=== PATIENT | female | born 1995 | race Caucasian/White ===

== ENCOUNTER 2024-04-17 14:32 | Emergency (ER) | payer SELFPAY ==
--- OUTSIDE RECORDS SUMMARY | 2024-04-17 14:37 | XMS REPORT | Continuity of Care Document ---
Author Name Unknown Address [address] [facility] [address] [place] [address] [facility] Address [address] [facility] [address] [place] [address] Care Team Providers Care Hogshead Weigher Name Role Phone ALEXA PHILIPPE Attending Clinician CAMILO Sethi Attending Clinician Unavailable Claude Ochoa Attending Clinician TERRANCE Jurado Attending Clinician Unavailable Physician, No Primary or Family Admitting Clinic [place] Unavailable Payers Payer Name Policy Type Policy Number Effective Date Expirati on Date Source [facility] [id number] 00:00:00 TP68 [employer] [id number] 2024 00:00:00 Allergies, Adverse Reactions, Alerts Allergy Name Allergy Type Status Severity Reaction(s) Onset Date Inactive Date Treating Clinician Comments Source Penicill ins DA Active U HIVES 01-09 00:00: 00 [facility] PENICILL INS Drug Class Active Hives 2017-06 00:00: 00 [facility] Encounters Start Date/Time End Date/Time Encounter Type Admission Type Attending Clinicians Care Facility Care Department Encounter ID Source 2021-04-13 21:57:23 Emergency [facility] [id number] [facility] 2024-04-09 00:00:00 2024-04-09 00:00:00 Outpatient ALEXA PHILIPPE [facility] [id number] [facility] 2023-02-28 00:00:00 2023-02-28 00:00:00 Outpatient CAMILO SALCEDO [facility] [id number] [facility] 2023-01-09 11:39:00 2023-01-09 12:45:00 Emergency EM Claude Ochoa [facility] [id number] [facility] 2022-12-12 15:47:00 2022-12-12 19:12:00 Emergency E TERRANCE [facility] [address] [facility] 2019-09-07 08:00:00 2019-09-07 08:00:00 Outpatient P [facility] [id number] [facility] Results Test Description Test Time Test Comments Results Resul t Comments Source - XR CHEST 1 V 2023-01-09 12:50:00 [facility] 1995 Sex: F FAX: Claude Ochoa MD [place]: B St: REG Name: YING BENSON [facility] : 1995 Age/S: 27/F Nadiya Mills [facility] Unit #: [id number] Loc: VHAZEL Ruffin [address] Phys: Claude Ochoa MD Acct: [id number] Dis Date: Status: REG ER PHONE #: [phone] Exam Date: 01/09/2023 1206 FAX #: [phone] Reason: Seizure EXAMS: CPT CODE: [id number] XR CHEST 1 V [id number] EXAM: - XR CHEST 1 V DATE: 01/09/2023 11:56 AM. INDICATION: Seizure . COMPARISON: None available. TECHNIQUE: Frontal chest. FINDINGS: Lines, Tubes and Hardware: None. Lungs and Pleura: No focal consolidation, pleural effusion, or pneumothorax is identified. Heart and Mediastinum: The heart size is normal. The mediastinal contours are unremarkable. Pulmonary vascularity is unremarkable. Bones: No acute skeletal abnormality is identified. Upper abdomen: Within normal limits IMPRESSION: No acute abnormality. at 1250 Reported and signed by: Castillo Calderon M.D. CC: Claude Ochoa MD Technologist: SANDIE YANES Trnscrd Date/Time/By: 01/09/2023 (8553) : By: [email or web address] Orig Print D/T: S: 01/09/2023 (6146) PAGE 1 Signed Report - CT HEAD/BRAIN W/O CONT 2023-01-09 12:46:00 [facility]Name: KELLEY YING Swathi : 1995 Sex: F Name: YING BENSON Swathi [facility] : 1995 Age/S: 27 / F [address] Unit #: [id number] Loc: HAZEL cShmidt [address] Phys: Claude Ochoa MD Acct: [id number] Dis Date: Status: REG ER PHONE #: [phone] Exam Date: 01/09/2023 1220 FAX #: [phone] Reason: Seizure EXAMS: CPT CODE: [id number] CT HEAD/BRAIN W/O CONT [id number] EXAM: - CT HEAD/BRAIN W/O CONT DATE: 01/09/2023 11:56 AM. INDICATION: Seizure . COMPARISON: None available. TECHNIQUE: Noncontrast images of the brain are obtained from the skull base to the vertex. Axial, sagittal, and coronal images are interpreted. AEC, mA/kV adjustment by patient size, and/or iterative reconstruction technique were used, per departmental dose-optimization program. IV contrast: None. DLP: 927.95 mGy-cm. FINDINGS: BRAIN PARENCHYMA/VENTRICLES There is no evidence of cerebral edema, mass, mass effect, hemorrhage, or recent cortical infarct. The campos-white distinction appears maintained. The brain volume is age-appropriate. The ventricles are normal in size and configuration. The basal cisterns appear patent. The cerebellopontine angles appear unremarkable. ORBITS, VISIBLE PARANASAL SINUSES AND MASTOIDS The visible paranasal sinuses are clear. The mastoid air cells are clear. No acute orbital abnormality is seen. SKULL No skull fracture or focal lesion is identified. IMPRESSION: No acute intracranial abnormality. PAGE 1 Signed Report (CONTINUED) Name: YING BENSON [facility] : 1995 Age/S: 27 / F [address] Unit #: [id number] Loc: [place] [address] Phys: Claude Ochoa MD Acct: [id number] Dis Date: Status: REG ER PHONE #: [phone] Exam Date: 01/09/2023 1220 FAX #: [phone] Reason: Seizure EXAMS: CPT CODE: [id number] CT HEAD/BRAIN W/O CONT [id number] (Continued) at 1246 Reported and signed by: Castillo Calderon M.D. CC: Claude Ochoa MD Technologist:Jose Grant RT(R),(MR),(CT) CTDI: DLP: Trnscb Date/Time: 01/09/2023 (1246) [email or web address] Orig Print D/T: S: 01/09/2023 (1250) PAGE 2 Signed Report Notes Date/Time Note Provider Source 2023-01-09 13:13:00 [facility] EMERGENCY PROVIDER REPORT REPORT#:[id number] REPORT STATUS: Signed DATE:01/09/23 TIME: 1313 PATIENT: YING BENSON UNIT #: [id number] ROOM/BED: AGE: 27 SEX: F PCP PHYS: No Primary or Family Physician SERVICE AUTHOR: Claude Ochoa MD * ALL edits or amendments must be made on the electronic/computer document * HPI-Seizure General Initial Greet Date/Time 01/09/23 1140 Presentation Chief Complaint SEIZURE Free Text HPI Notes Free Text HPI Notes 27-year-old female presented to the emergency room with recurrent seizure. However patient left the emergency room prior to medical screening exam Past Medical History - Adult Stated Complaint SEIZURE Allergies Coded Allergies: Penicillins (HIVES 01/09/23) Smoking status for patients 13 years old or older: Current every day smoker Physical Exam Vital Signs Vital Signs First Documented: Result Date Time Pulse Ox 100 01/09 1146 B/P 127/87 01/09 1146 B/P Mean 100.5 01/09 1146 Temp 36.8 01/09 1146 Pulse 107 01/09 1146 Resp 18 01/09 1146 Last Documented: Result Date Time Pulse Ox 100 01/09 1146 B/P 127/87 01/09 1146 B/P Mean 100.5 01/09 1146 Temp 36.8 01/09 1146 Pulse 107 01/09 1146 Resp 18 01/09 1146 Review of Vital Signs Reviewed Interpretation Diagnostics Lab Results Interpretation Results Recent Impressions: RADIOLOGY - XR CHEST 1 V 01/09 1200 Report Impression - Status: SIGNED Entered: 01/09/2023 1253 IMPRESSION: No acute abnormality. Impression By: t.JOAO Calderon M.D. CAT SCAN - CT HEAD/BRAIN W/O CONT 01/09 1215 Report Impression - Status: SIGNED Entered: 01/09/2023 1250 IMPRESSION: No acute intracranial abnormality. Impression By: Loi Calderon M.D. Re-Evaluation MDM Free Text MDM Notes Free Text MDM Notes 27-year-old female with a recurrent seizure Chest x-ray and CT unremarkable Patient left the emergency room prior to medical screening exam ED Course Medication(s) Ordered Medication(s) Ordered: Central Nervous System Agents Sig/Levar Start time Last Medication Dose Route Stop Time Status Admin Levetiracetam 100 ML X1ED STA 01/09 1156 DC IV 01/09 1255 Electrolytic, Caloric, And Carla Sig/Levar Start time Last Medication Dose Route Stop Time Status Admin Sodium Chloride 1,000 ML X1ED STA 01/09 1155 DC IV 01/09 1254 Differential Diagnosis )( Differential Diagnosis Anticonvulsant withdrawal, Closed head injury, CVA/TIA , Drug ingestion, Drug overdose, Drug reaction, Eclampsia, Encephalitis, Head trauma, Hyperventilation, Hypocalcemia, Hypoglycemia, Hyponatremia, Hypoxemia, Intracranial bleed, Intracranial mass/lesion, Meningitis, Migraine headache atypic, Migraine headache variant, Post-concussive syndrome, Pseudoseizure, Seizure disorder, Seizure, absence, Seizure, alcohol withdraw, Seizure, grand mal, Seizure, new onset, Seizure, petit mal, Seizure, psychogenic, Seizure, psychomotor, Seizure, tonic-clonic, Skull fracture, Syncope, Tic disorder, Tongue laceration Patient Discharge Departure Vital Signs/Condition Vital Signs First Documented: Result Date Time Pulse Ox 100 01/09 1146 B/P 127/87 01/09 1146 B/P Mean 100.5 01/09 1146 Temp 36.8 01/09 1146 Pulse 107 01/09 1146 Resp 18 01/09 1146 Last Documented: Result Date Time Pulse Ox 100 01/09 1146 B/P 127/87 01/09 1146 B/P Mean 100.5 01/09 1146 Temp 36.8 01/09 1146 Pulse 107 01/09 1146 Resp 18 01/09 1146 All vital signs available at the time of this entry have been reviewed. Clinical Impression Clinical Impression Primary Impression: Recurrent seizures Disposition Decision Other )( Time 1315 )( Date 01/09/23 Left Prior to MSE Yes at 1406 RPT #:[id number] [facility]
--- NOTE | 2024-04-17 16:22 | ER ---
Nurse's Notes [facility] Name: Francesca aLwrence Age: 29 yrs Sex: Female : 1995 Arrival Date: 04/17/2024 Time: 14:32 Bed DX3 Private MD: Diagnosis: Periapical abscess without sinus;Dental root caries;Cellulitis of face Presentation: 04/17 14:52 Chief complaint: Patient states: left toothache and left cheek swelling. Pt states aa5 "it's now making me nauseated and I've vomited". Coronavirus screen: At this time, the client does not indicate any symptoms associated with coronavirus-19. Ebola Screen: Patient denies travel to an Ebola-affected area in the 21 days before illness onset. Initial Sepsis Screen: Does the patient meet any 2 criteria? HR > 90 bpm. Does the patient have a suspected source of infection? No. Patient's initial sepsis screen is negative. Risk Assessment: Do you want to hurt yourself or someone else? Patient reports no desire to harm self or others. Onset of symptoms was March 2024. 14:52 Acuity: CHINEDU 3 aa5 14:52 Method Of Arrival: Ambulatory aa5 Triage Assessment: 14:52 General: Appears uncomfortable, Behavior is calm, cooperative. Pain: Complains of pain aa5 in left cheek. Neuro: Level of Consciousness is awake, alert, obeys commands, Oriented to person, place, time, situation. Respiratory: Airway is patent Respiratory effort is even, unlabored, Respiratory pattern is regular, symmetrical. Derm: Skin is pink, warm \\T\\ dry. Historical: - Allergies: 14:53 PENICILLINS; aa5 - PMHx: 14:53 Seizure; aa5 - PSHx: 14:53 oral sx; aa5 - Immunization history:: Adult Immunizations unknown. - Infectious Disease History:: Denies. - Social history:: Smoking status: Patient reports the use of cigarette tobacco products. Assessment: 16:28 Reassessment: Patient is alert, oriented x 3, equal unlabored respirations, skin aa5 warm/dry/pink. Vital Signs: 14:52 BP 122 / 81; Pulse 98; Resp 18 S; Temp 98(O); Pulse Ox 98% on R/A; Weight 68.04 kg (R); aa5 Height 5 ft. 4 in. (R); 14:52 Body Mass Index 25.75 (68.04 kg, 162.56 cm) aa5 ED Course: 14:35 Patient arrived in ED. mg5 14:48 Navya Miller MD is Attending Physician. gb1 14:52 Arm band placed on. aa5 14:53 Triage completed. aa5 16:21 Magdy Cohen DDS is Referral Physician. gb1 16:28 No provider procedures requiring assistance completed. Patient did not have IV access aa5 during this emergency room visit. Administered Medications: 16:28 Drug: Ondansetron PO 4 mg PO once Route: PO; aa5 16:28 Follow up: Response: Medication administered at discharge. aa5 16:28 Drug: HYDROcodone-acetaminophen PO 5 mg-325 mg 1 tabs PO once Route: PO; aa5 16:28 Follow up: Response: Medication administered at discharge. aa5 Outcome: 16:21 Discharge ordered by MD. gb1 16:28 Discharged to home ambulatory, aa5 16:28 Condition: stable 16:28 Discharge instructions given to patient, Instructed on discharge instructions, follow up and referral plans. medication usage, Demonstrated understanding of instructions, follow-up care, medications, Prescriptions given X 3, 16:29 Patient left the ED. aa5 Signatures: Shelley nAdrade RN RN aa5 Blaire Morelos mg5 Navya Miller MD MD gb1 Corrections: (The following items were deleted from the chart) 14:54 14:53 PMHx: None; aa5 aa5
--- NOTE | 2024-04-17 16:22 | EDPHYS ---
Physician Documentation [facility] Name: Francesca Lawrence Age: 29 yrs Sex: Female : 1995 Arrival Date: 04/17/2024 Time: 14:32 Bed DX3 Private MD: ED Physician Navya Miller HPI: 04/17 19:54 This 29 yrs old Female presents to ER via Ambulatory with complaints of gb1 Nausea/Vomiting, Toothache. 19:54 29-year-old female with left tooth pain and headache. She has a history of seizures and gb1 states that she was nauseated and vomited after her left face started to swell and become painful. It hurts to eat or have hot or cold foods in her mouth.. Historical: - Allergies: 14:53 PENICILLINS; aa5 - PMHx: 14:53 Seizure; aa5 - PSHx: 14:53 oral sx; aa5 - Immunization history:: Adult Immunizations unknown. - Infectious Disease History:: Denies. - Social history:: Smoking status: Patient reports the use of cigarette tobacco products. Exam: 19:54 Constitutional: This is a well developed, well nourished patient who is awake, alert, gb1 and in no acute distress. Head/Face: Left facial swelling, upper left molar severe dental caries with rotting dentition. Very foul odors in the patient's mouth. Eyes: Pupils equal round and reactive to light, extra-ocular motions intact. Lids and lashes normal. Conjunctiva and sclera are non-icteric and not injected. Cornea within normal limits. Periorbital areas with no swelling, redness, or edema. ENT: Nares patent. No nasal discharge, no septal abnormalities noted. Tympanic membranes are normal and external auditory canals are clear. Oropharynx with no redness, swelling, or masses, exudates, or evidence of obstruction, uvula midline. Mucous membranes moist. Chest/axilla: Normal chest wall appearance and motion. Nontender with no deformity. No lesions are appreciated. Cardiovascular: Regular rate and rhythm with a normal S1 and S2. No gallops, murmurs, or rubs. Normal PMI, no JVD. No pulse deficits. Respiratory: Lungs have equal breath sounds bilaterally, clear to auscultation and percussion. No rales, rhonchi or wheezes noted. No increased work of breathing, no retractions or nasal flaring. Abdomen/GI: Soft, non-tender, with normal bowel sounds. No distension or tympany. No guarding or rebound. No evidence of tenderness throughout. Vital Signs: 14:52 BP 122 / 81; Pulse 98; Resp 18 S; Temp 98(O); Pulse Ox 98% on R/A; Weight 68.04 kg (R); aa5 Height 5 ft. 4 in. (R); 14:52 Body Mass Index 25.75 (68.04 kg, 162.56 cm) aa5 MDM: 15:31 Medical Screening Exam initiated gb1 19:54 Differential diagnosis: Dental caries, periapical abscess with facial cellulitis, gb1 dental abscess, acute gingivitis doubt ANUG. There is no brawny edema at this time no concern for subungual edema. I do think that the patient has an active dental infection I have prescribed antibiotics and pain medicine and I have referred her to oral maxillofacial surgery for likely extraction. Data reviewed: vital signs, nurses notes. Administered Medications: 16:28 Drug: Ondansetron PO 4 mg PO once Route: PO; aa5 16:28 Follow up: Response: Medication administered at discharge. aa5 16:28 Drug: HYDROcodone-acetaminophen PO 5 mg-325 mg 1 tabs PO once Route: PO; aa5 16:28 Follow up: Response: Medication administered at discharge. aa5 Disposition Summary: 04/17/24 16:21 Discharge Ordered Notes: Location: Home gb1 Problem: an acute exacerbation gb1 Symptoms: have worsened gb1 Condition: Stable gb1 Diagnosis - Periapical abscess without sinus gb1 - Dental root caries gb1 - Cellulitis of face gb1 Followup: gb1 - With: Magdy Cohen DDS - When: 1 - 2 days - Reason: Further diagnostic work-up Discharge Instructions: - Discharge Summary Sheet gb1 - Dental Abscess gb1 Forms: - Medication Reconciliation Form gb1 - Antibiotic Education gb1 - Prescription Opioid Use gb1 - Patient Portal Instructions gb1 - Leadership Thank You Letter gb1 Prescriptions: - tramadol 50 mg Oral tablet - take 0.5 tablet ORAL route every 4 to 6 hours as needed for pain; 6 tablet; gb1 Refills: 0, Product Selection Permitted - Clindamycin HCl 150 mg Oral Capsule - take 1 capsule ORAL route every 6 hours for 10 days; 40 capsule; Refills: 0, gb1 Product Selection Permitted - Ibuprofen 800 mg Oral Tablet - take 1 tablet ORAL route every 8 hours As needed take with food; 30 tablet; gb1 Refills: 0, Product Selection Permitted Signatures: Shelley Andrade, RN RN aa5 Navya Miller MD MD gb1 Corrections: (The following items were deleted from the chart) 14:54 14:53 PMHx: None; jade hansen
[2024-04-17] MEDS ORDERED: ONDANSETRON 4 MG (ODT) TAB ONE (16:25)
[2024-04-17] MEDS ORDERED: HYDROCODONE/APAP 5/325 MG TAB ONE (16:25)
[2024-04-17 17:06] VITALS: BP 122/81; TEMP 98; O2SAT 98
== END 2024-04-17 16:29 | disposition home or self-care (01) ==
LOC: ER 14:32
DX: K04.7 Periapical abscess without sinus (principal); K02.7 Dental root caries; L03.211 Cellulitis of face
CPT/HCPCS: 99283; Q0162

== ENCOUNTER 2024-04-18 09:06 | Inpatient (IN) | payer SELFPAY ==
--- OUTSIDE RECORDS SUMMARY | 2024-04-18 09:08 | XMS REPORT | Continuity of Care Document ---
Author Name Unknown Address [address] [facility] [address] [place] [address] [facility] Address [address] [facility] [address] [place] [address] Care Team Providers Care Electric Meter Tester Helper Name Role Phone ALEXA PHILIPPE Attending Clinician CAMILO Sethi Attending Clinician Unavailable Claude Ochoa Attending Clinician TERRANCE Jurado Attending Clinician Unavailable Physician, No Primary or Family Admitting Clinic [place] Unavailable Payers Payer Name Policy Type Policy Number Effective Date Expirati on Date Source [facility] [id number] 00:00:00 TP68 [employer] [id number] 2024 00:00:00 Allergies, Adverse Reactions, Alerts Allergy Name Allergy Type Status Severity Reaction(s) Onset Date Inactive Date Treating Clinician Comments Source Penicill ins DA Active U HIVES 01-09 00:00: 00 [facility] PENICILL INS Drug Class Active Hives 2017-06 00:00: 00 [facility] Encounters Start Date/Time End Date/Time Encounter Type Admission Type Attending Clinicians Care Facility Care Department Encounter ID Source 2021-04-13 21:57:23 Emergency [facility] [id number] [facility] 2024-04-09 00:00:00 2024-04-09 00:00:00 Outpatient ALEXA PHILIPPE [facility] [id number] [facility] 2023-02-28 00:00:00 2023-02-28 00:00:00 Outpatient CAMILO SALCEDO [facility] [id number] [facility] 2023-01-09 11:39:00 2023-01-09 12:45:00 Emergency EM Claude Ochoa [facility] [id number] [facility] 2022-12-12 15:47:00 2022-12-12 19:12:00 Emergency E TERRANCE [facility] [id number] [facility] 2019-09-07 08:00:00 2019-09-07 08:00:00 Outpatient P [facility] [id number] [facility] Results Test Description Test Time Test Comments Results Resul t Comments Source - XR CHEST 1 V 2023-01-09 12:50:00 [facility] 1995 Sex: F FAX: Claude Ochoa MD [place]: B St: REG Name: YING BENSON [facility] : 1995 Age/S: 27/F Nadiya Mills [facility] Unit #: [id number] Loc: VHAZEL Ruff[place] [address] Phys: Claude Ochoa MD Acct: [id number] Dis Date: Status: REG ER PHONE #: [phone] Exam Date: 01/09/2023 1206 FAX #: [phone] Reason: Seizure EXAMS: CPT CODE: [id number] XR CHEST 1 V 59415 EXAM: - XR CHEST 1 V DATE: [...] MD Technologist: SANDIE YANES Trnscrd Date/Time/By: 01/09/2023 (9411) : By: [email or web address] Orig Print D/T: S: 01/09/2023 (9995) PAGE 1 Signed Report - CT HEAD/BRAIN W/O CONT 2023-01-09 12:46:00 [facility]Name: KELLEY YING Swathi : 1995 Sex: F Name: YING BENSON Swathi [facility] : 1995 Age/S: 27 / F [address] Unit #: [id number] Loc: [place] [address] Phys: Claude Ochoa MD Acct: [id number] Dis Date: Status: REG ER PHONE #: [phone] Exam Date: 01/09/2023 1220 FAX #: [phone] Reason: Seizure EXAMS: CPT CODE: [id number] CT HEAD/BRAIN W/O CONT [id number] EXAM: - CT HEAD/BRAIN W/O CONT DATE: [...] 1 Signed Report (CONTINUED) Name: YING BENSON [facility] : 1995 Age/S: 27 / F [address] Unit #: [id number] Loc: HA[place]EL [place] [address] Phys: Claude Ochoa MD Acct: [id number] Dis Date: Status: REG ER PHONE #: [phone] Exam Date: 01/09/2023 1220 FAX #: [phone] Reason: Seizure EXAMS: CPT CODE: [id number] CT HEAD/BRAIN W/O CONT 65732 (Continued) at 1246 Reported and signed by: Castillo Calderon M.D. CC: Claude Ochoa MD Technologist:Jose Grant RT(R),(MR),(CT) CTDI: DLP: Trnscb Date/Time: 01/09/2023 (1246) [email or web address] Orig Print D/T: S: 01/09/2023 (1250) PAGE 2 Signed Report Notes Date/Time Note Provider Source 2023-01-09 13:13:00 [facility] EMERGENCY PROVIDER REPORT REPORT#:[id number] REPORT STATUS: Signed DATE:01/09/23 TIME: 1313 PATIENT: YING BENSON UNIT #: [id number] ROOM/BED: AGE: 27 SEX: F PCP PHYS: [...] IMPRESSION: No acute intracranial abnormality. Impression By: Lio Calderon M.D. Re-Evaluation MDM Free Text MDM [...] 01/09/23 Left Prior to MSE Yes at 6346 RPT #:[id number] [facility]
[2024-04-18] MEDS ORDERED: LEVETIRACETAM 500 MG/5 ML VIAL IV ONE (09:45)
[2024-04-18] MEDS ORDERED: PROMETHAZINE INJ 25 MG/ML AMP ONE (09:45)
[2024-04-18] MEDS ORDERED: NA CHLORIDE 0.9% 500 ML ONE (09:46)
[2024-04-18] MEDS ORDERED: CLINDAMYCIN 600MG/D5W 50 ML IV ONE (09:46)
[2024-04-18] MEDS ORDERED: MORPHINE 4 MG/ML SYR ONE (09:46)
[2024-04-18] MEDS ORDERED: NA CHLORIDE 0.9% 1,000 ML ONE (09:46)
[2024-04-18] MEDS ORDERED: NA CHLORIDE 0.9% 100 ML ONE (09:47)
[2024-04-18 10:09] LABS: Absolute Basophils 0.1 K/uL (0-0.5); Absolute Eosinophils 0.3 K/uL (0-0.5); Absolute Lymphocytes (CBC) 2.4 K/uL (0.7-4.9); Absolute Monocytes 1.3 K/uL (0.1-1.3); Absolute Neutrophil 11.2 K/uL (1.8-8.0); Basophils % 0.5 % (0-1.3); Eosinophils % 2.2 % (0-4.4); Hematocrit 45.3 % (36.0-45.0); Hemoglobin 15.1 g/dL (12.0-15.0); Lymphocytes % 15.7 % (15.3-44.8); MCH 32.5 pg (27.0-35.0); MCHC 33.3 g/dL (32.0-36.0); MCV 97.7 fL (80-100); MPV 9.2 fL (7.6-11.3); Monocytes % 8.5 % (3.3-12.3); Neutrophils % 73.1 % (41.7-73.7); Platelets 294 thou/uL (152-406); RBC Red Blood Cell Count 4.64 M/uL (3.86-4.86); Red Cell Distribution Width 12.7 % (12.1-15.2)
[2024-04-18 10:28] LABS: Albumin 3.9 g/dL (3.4-5.0); Albumin/Globulin Ratio 0.9 (1.1-1.8); Anion Gap 10.5 mEq/L (5.0-15.0); Bilirubin Total 0.6 mg/dL (0.2-1.0); Globulin 4.4 g/dL (2.3-3.5); Potassium 3.5 mEq/L (3.5-5.1); Protein, Total 8.3 g/dL (6.4-8.2)
--- NOTE | 2024-04-18 10:59 | RAD REPORT ---
EXAMINATION: CT MAXILLOFACIAL WITH CONTRAST CLINICAL INDICATION: FACIAL PAIN TECHNIQUE: Axial images were obtained through the facial bones and orbits without intravenous contras t. Sagittal and coronal reconstructions were created from the data. One or more of the following dose reduction techniques were used: Automated exposure control, adjustment of the mA and/or kV accor ding to patient size, and/or iterative reconstruction. Unless otherwise specified, incidental findings do not require dedicated imaging follow-up. IV contrast was administered. COMPARISON: No prior exam. FINDINGS: SOFT TISSUE: Moderate soft tissue swelling is seen left aspect of the face. Subperiosteal odontogenic abscess is noted adjacent to the posterior left maxillary buccal cortex. This measures 20 x 4 mm. Mild reactive lymphadenopathy seen left submandibular and left jugular chain stations. BONES: Eroded left posterior maxillary molar noted with significant periapical abscess. This is predo minantly involving the first left maxillary molar. ORBITS: The globes are intact. No intraorbital hemorrhage or mass. SINUSES: Moderate sinus opacification left maxillary antrum. IMPRESSION: Moderate soft tissue swelling is seen left aspect of the space. Subperiosteal odontogenic abscess is seen along the posterior left buccal cortex adjacent to the posterior left maxilla. This appears to be caused by significantly eroded left first maxillary molar with large periapical abscess associated .
--- NOTE | 2024-04-18 11:26 | ER ---
Nurse's Notes [facility] Name: Francesca Lawrence Age: 29 yrs Sex: Female : 1995 Arrival Date: 04/18/2024 Time: 09:06 Bed 4 Private MD: Diagnosis: Periapical abscess without sinus;Dehydration Presentation: 04/18 09:16 Chief complaint: Patient states: left sided facial swelling since 04/15, was prescribed iw clindamycin for a toothache and cellulitis but has not started it. Coronavirus screen: At this time, the client does not indicate any symptoms associated with coronavirus-19. Initial Sepsis Screen: Does the patient meet any 2 criteria? HR > 90 bpm. Does the patient have a suspected source of infection? No. Patient's initial sepsis screen is negative. Risk Assessment: Do you want to hurt yourself or someone else? Patient reports no desire to harm self or others. 09:16 Method Of Arrival: Ambulatory iw 09:16 Ebola Screen: No symptoms or risks identified at this time. Onset of symptoms was iw April 15, 2024. 09:16 Acuity: CHINEDU 3 iw SUBSTANCE ABUSE PREVENTION COORDINATOR: 09:17 LMP N/A - Irregular menses, Not iw Historical: - Allergies: 09:17 PENICILLINS; iw - PMHx: 09:17 Seizure; iw - PSHx: 09:17 oral SX; iw - Immunization history:: Adult Immunizations not up to date. - Infectious Disease History:: Denies. - Social history:: Smoking status: Patient reports the use of cigarette tobacco products. Screenin:45 [facility] ED Fall Risk Assessment (Adult) History of falling in the last 3 months, hb including since admission No falls in past 3 months (0 pts) Confusion or Disorientation No (0 pts) Intoxicated or Sedated No (0 pts) Impaired Gait No (0 pts) Mobility Assist Device Used No (0 pt) Altered Elimination No (0 pt) Score/Fall Risk Level 0 - 2 = Low Risk Oriented to surroundings, Maintained a safe environment, Educated pt \T\ family on fall prevention, incl call for assistance when getting out of bed. Abuse screen: Denies threats or abuse. Denies injuries from another. Nutritional screening: No deficits noted. Tuberculosis screening: No symptoms or risk factors identified. Assessment: 09:30 General: Appears in no apparent distress. Behavior is calm, cooperative. Pain: Pain hb currently is 10 out of 10 on a pain scale. Neuro: Level of Consciousness is awake, alert, obeys commands, Oriented to person, place, time, situation. Cardiovascular: Patient's skin is warm and dry. Respiratory: Respiratory effort is even, Respiratory pattern is regular, symmetrical. GI: No signs and/or symptoms were reported involving the gastrointestinal system. : No signs and/or symptoms were reported regarding the genitourinary system. EENT: left sided facial swelling . Derm: Skin is pink, warm \T\ dry. Musculoskeletal: No signs and/or symptoms reported regarding the musculoskeletal system. 11:00 Reassessment: Patient appears in no apparent distress at this time. Patient and/or hb family updated on plan of care and expected duration. Pain level reassessed. Patient is alert, oriented x 3, equal unlabored respirations, skin warm/dry/pink. 12:30 Reassessment: Patient appears in no apparent distress at this time. Patient and/or hb family updated on plan of care and expected duration. Pain level reassessed. Patient is alert, oriented x 3, equal unlabored respirations, skin warm/dry/pink. Vital Signs: 09:16 BP 123 / 97; Pulse 103; Resp 18; Temp 99.1; Pulse Ox 97% on R/A; Weight 67.13 kg; iw Height 5 ft. 4 in. ; Pain 10/10; 10:45 BP 126 / 86; Pulse 100; Resp 15; Pulse Ox 99% on R/A; hb 12:30 BP 124 / 80; Pulse 92; Resp 15; Pulse Ox 99% on R/A; hb 13:20 BP 119 / 91; Pulse 105; Resp 16; Pulse Ox 100% on R/A; mb9 09:16 Body Mass Index 25.40 (67.13 kg, 162.56 cm) iw 09:16 Pain Scale: Adult iw ED Course: 09:07 Patient arrived in ED. ra3 09:12 Jennifer Mars FNP-C is PHCP. snw 09:12 Damien Ray MD is Attending Physician. snw 09:18 Triage completed. iw 09:45 No provider procedures requiring assistance completed. hb 09:45 Patient has correct armband on for positive identification. Provided Education on: use hb of call light . 09:45 Arm band placed on right wrist. hb 09:50 No apparent distress. Awaiting lab results. bm7 09:50 Initial lab(s) drawn, by me, sent to lab. First set of blood cultures drawn by me. bm7 Inserted saline lock: 20 gauge 24 gauge antecubital area, using aseptic technique. Blood collected. Missed attempt(s): 20 gauge in left antecubital area. Bleeding controlled, band aid applied, catheter tip intact. Patient maintains SpO2 saturation greater than 95% on room air. 10:03 Test, Serum Sent. hb 10:18 Maddy Fung, MANUEL is Primary Nurse. hb 10:45 CT Maxillofacial W/cont In Process Unspecified. EDMS 11:25 Damien Ray MD is Hospitalizing Provider. snw 13:18 Patient admitted, IV remains in place. hb Administered Medications: 10:03 Drug: Promethazine IVP 6.25 mg IVP once Route: IVP; Site: right antecubital; hb 12:23 Follow up: Response: No adverse reaction; Nausea is decreased; RASS: Drowsy (-1) ll1 10:03 Drug: morphine IVP or IV 4 mg IVP once over 4 mins Route: IVP; Infused Over: 4 mins; hb Site: right antecubital; 12:23 Follow up: Response: No adverse reaction; Pain is decreased; RASS: Drowsy (-1) ll1 10:03 Drug: NS 0.9% IV (20 ml/kg) 20 ml/kg IV at 1 bolus once; to be given as a bolus over 90 hb minutes Route: IV; Rate: 1 bolus; Site: right antecubital; 12:22 Follow up: Response: No adverse reaction; IV Status: Completed infusion; IV Intake: ll1 1343ml 10:03 Drug: Keppra IV 1000 mg IV at calculated rate once Route: IV; Rate: calculated rate; hb Site: right antecubital; 12:22 Follow up: Response: No adverse reaction; IV Status: Completed infusion; IV Intake: ll1 100ml 10:19 Drug: Clindamycin IVPB 600 mg IVPB once over 30 mins; (mix in 50 mL) Route: IVPB; hb Infused Over: 30 mins; Site: right antecubital; 12:22 Follow up: Response: No adverse reaction; IV Status: Completed infusion; IV Intake: [id number] 12:22 Drug: metroNIDAZOLE IVPB 500 mg 100 ml IVPB at 200 ml/hr once over 30 mins Volume: 100 ll1 ml; Route: IVPB; Rate: 200 ml/hr; Infused Over: 30 mins; Site: right antecubital; 13:20 Follow up: Response: No adverse reaction; IV Status: Completed infusion [email or web address] Medication: 10:45 VIS not applicable for this client. hb Intake: 12:22 IV: 50ml; Total: 50ml. ll1 12:22 IV: 100ml; Total: 150ml. ll1 12:22 IV: 1343ml; Total: 1493ml. ll1 Outcome: 11:25 Decision to Hospitalize by Provider. snw 13:20 Admitted to Med/surg accompanied by tech, via stretcherjony 13:20 Condition: stable 13:20 Instructed on the need for admit, 13:40 Patient left the ED. [email or web address] Signatures: Dispatcher [employer] EDMS Jennifer Mars, YELLOW PAGES SPACE SALESPERSON-C YELLOW PAGES SPACE SALESPERSON-Csnw Jina Peralta, MANUEL JACKSON Maddy Fung RN MANUEL Ashleigh Newman RN RN ll1 Brenda Kruse RN RN [email or web address] Diana Talbert, RN RN mb9 Jeannine Mckeon ra3 Corrections: (The following items were deleted from the chart) 09:18 09:16 Chief complaint: Patient states: left sided facial swelling since 04/15 [facility] 09:18 09:16 BP 123 / 97; Pulse 103bpm; Resp 18bpm; Pulse Ox 97% RA; Temp 99.1F; [facility] 09:19 09:16 Chief complaint: Patient states: left sided facial swelling since 04/15 [facility]
--- NOTE | 2024-04-18 11:26 | EDPHYS ---
Physician Documentation [facility] Name: Francesca Lawrence Age: 29 yrs Sex: Female : 1995 Arrival Date: 04/18/2024 Time: 09:06 Bed 4 Private MD: ED Physician Damien Ray HPI: 04/18 09:27 This 29 yrs old Female presents to ER via Ambulatory with complaints of Toothache, snw Facial Swelling. 09:27 The patient presents with pain, swelling. The problem is located in the left upper. snw Onset: The symptoms/episode began/occurred suddenly, 3 day(s) ago. Duration: The symptoms are continuous, and are steadily getting worse. Associated signs and symptoms: Pertinent positives: inability to eat, nausea, pain, swelling, vomiting. Severity of symptoms: At their worst the symptoms were incapacitating. The patient has not experienced similar symptoms in the past. The patient has been recently seen by a physician: The patient has been recently seen at the [facility] Emergency Department, yesterday. did not bean picker meds. TAX ADVISOR: : LMP N/A - Irregular menses, Not iw Historical: - Allergies: 09:17 PENICILLINS; iw - PMHx: : Seizure; iw - PSHx: :17 oral SX; iw - Immunization history:: Adult Immunizations not up to date. - Infectious Disease History:: Denies. - Social history:: Smoking status: Patient reports the use of cigarette tobacco products. ROS: 09:27 Neck: Negative for injury, pain, and swelling, Cardiovascular: Negative for chest pain, snw palpitations, and edema, Respiratory: Negative for shortness of breath, cough, wheezing, and pleuritic chest pain, Back: Negative for injury and pain, : Negative for injury, bleeding, discharge, and swelling, MS/Extremity: Negative for injury and deformity, Skin: Negative for injury, rash, and discoloration, Neuro: Negative for headache, weakness, numbness, tingling, and seizure, Psych: Negative for depression, anxiety, suicide ideation, homicidal ideation, and hallucinations, : Constitutional: Positive for body aches, chills, fever, malaise, poor PO intake, Eyes: Positive for visual disturbance, : ENT: Positive for dental pain, sinus pain, Teeth pain 09: Neck: 09: Abdomen/GI: Positive for nausea and vomiting, Exam: : Chest/axilla: Normal chest wall appearance and motion. Nontender with no deformity. snw No lesions are appreciated. : Respiratory: Lungs have equal breath sounds bilaterally, clear to auscultation and percussion. No rales, rhonchi or wheezes noted. No increased work of breathing, no retractions or nasal flaring. Abdomen/GI: Soft, non-tender, with normal bowel sounds. No distension or tympany. No guarding or rebound. No evidence of tenderness throughout. Back: No spinal tenderness. No costovertebral tenderness. Full range of motion. Skin: Warm, dry with normal turgor. Normal color with no rashes, no lesions, and no evidence of cellulitis. MS/ Extremity: Pulses equal, no cyanosis. Neurovascular intact. Full, normal range of motion. Neuro: Awake and alert, GCS 15, oriented to person, place, time, and situation. Cranial nerves II-XII grossly intact. Motor strength 5/5 in all extremities. Sensory grossly intact. Cerebellar exam normal. Normal gait. Psych: Awake, alert, with orientation to person, place and time. Behavior, mood, and affect are within normal limits. 09: Constitutional: The patient appears alert, anxious, obviously ill, uncomfortable, : Head/face: Noted is swelling, tenderness, that is moderate, that is severe, of the left ear and left cheek, : Eyes: Periorbital structures: swelling, that is mild, on the left lower eyelid, Extraocular movements: intact throughout, : ENT: External ear(s): are unremarkable, Nose: is normal, Mouth: unable to open mouth, Voice: is normal, : Cardiovascular: Rate: tachycardic, + orthostatics to 126, Heart sounds: normal, Vital Signs: 09:16 BP 123 / 97; Pulse 103; Resp 18; Temp 99.1; Pulse Ox 97% on R/A; Weight 67.13 kg; iw Height 5 ft. 4 in. ; Pain 10/10; 10:45 BP 126 / 86; Pulse 100; Resp 15; Pulse Ox 99% on R/A; hb 12:30 BP 124 / 80; Pulse 92; Resp 15; Pulse Ox 99% on R/A; hb 13:20 BP 119 / 91; Pulse 105; Resp 16; Pulse Ox 100% on R/A; mb9 09:16 Body Mass Index 25.40 (67.13 kg, 162.56 cm) iw 09:16 Pain Scale: Adult iw MDM: 09:24 Differential diagnosis: dental caries, gingivitis, dental abscess. Data reviewed: vital snw signs, nurses notes, lab test result(s), Beta HCG: irregular cycles, denies CBC, electrolytes, radiologic studies, CT scan. I considered the following discharge prescriptions or medication management in the emergency department Medications were administered in the Emergency Department. See MAR. Care significantly affected by the following chronic conditions: seizure disorder, takes Keppra, none in 2 weeks, last seizure 1 month ago. Counseling: I had a detailed discussion with the patient and/or guardian regarding the historical points, exam findings, and any diagnostic results supporting the discharge/admit diagnosis, lab results, radiology results. 09:32 Medical Screening Exam initiated snw 10:13 ED course: tachycardia, source of infection, elevated WBC, blood cultures and abx and snw bolus started. Awaiting lactate. 11:26 Management of patient was discussed with the following: OFM at [facility]. Declined transfer snw as "not an emergency". Discussed vomiting, not holding down seizure meds, mod trismus, + orthostatics. Declined. Pt to be admitted here for dehydration, infection, and s/s with outpt f/u Dental as a result. Post IV fluid administration reassessment for Sepsis: Client not prescribed the 30 mL/kg IVF due to: Amount of IVF prescribed: 1340 Sepsis focused reassessment complete. Lungs: Noted to be clear bilaterally. Neuro: Neurological examination improved from previous exam. Response to treatment: the patient's symptoms have mildly improved after treatment. 12:25 Counseling: I had a detailed discussion with the patient and/or guardian regarding the snw need for further work-up and treatment in the hospital. 12:25 Management of patient was discussed with the following: Dr Biswas re: consult. snw Counseling: I had a detailed discussion with the patient and/or guardian regarding the need for outpatient follow up, a dentist. 04/18 09:24 Order name: Blood Culture Adult (2) snw 04/18 09:24 Order name: CBC with Diff; Complete Time: 10:11 snw 04/18 09:24 Order name: CMP; Complete Time: :32 snw 04/18 09:24 Order name: Lactate w/ 2H reflex if indic.; Complete Time: :32 snw 04/18 09:24 Order name: Test, Serum; Complete Time: 10:32 snw 04/18 09:24 Order name: CT Maxillofacial W/cont; Complete Time: 11:06 snw 04/18 09:24 Order name: IV Saline Lock - Large Bore; Complete Time: 10:03 snw 04/18 09:24 Order name: Labs collected and sent; Complete Time: 10: snw 04/18 09:24 Order name: O2 Sat Monitoring; Complete Time: 09:35 snw 04/18 09:24 Order name: Vital Signs; Complete Time: 09:35 snw Administered Medications: 10:03 Drug: Promethazine IVP 6.25 mg IVP once Route: IVP; Site: right antecubital; hb 12:23 Follow up: Response: No adverse reaction; Nausea is decreased; RASS: Drowsy (-1) ll1 10:03 Drug: morphine IVP or IV 4 mg IVP once over 4 mins Route: IVP; Infused Over: 4 mins; hb Site: right antecubital; 12:23 Follow up: Response: No adverse reaction; Pain is decreased; RASS: Drowsy (-1) ll1 10:03 Drug: NS 0.9% IV (20 ml/kg) 20 ml/kg IV at 1 bolus once; to be given as a bolus over 90 hb minutes Route: IV; Rate: 1 bolus; Site: right antecubital; 12:22 Follow up: Response: No adverse reaction; IV Status: Completed infusion; IV Intake: ll1 1343ml 10:03 Drug: Keppra IV 1000 mg IV at calculated rate once Route: IV; Rate: calculated rate; hb Site: right antecubital; 12:22 Follow up: Response: No adverse reaction; IV Status: Completed infusion; IV Intake: ll1 100ml 10:19 Drug: Clindamycin IVPB 600 mg IVPB once over 30 mins; (mix in 50 mL) Route: IVPB; hb Infused Over: 30 mins; Site: right antecubital; 12:22 Follow up: Response: No adverse reaction; IV Status: Completed infusion; IV Intake: [id number] 12:22 Drug: metroNIDAZOLE IVPB 500 mg 100 ml IVPB at 200 ml/hr once over 30 mins Volume: 100 ll1 ml; Route: IVPB; Rate: 200 ml/hr; Infused Over: 30 mins; Site: right antecubital; 13:20 Follow up: Response: No adverse reaction; IV Status: Completed infusion mb9 Disposition Summary: 04/18/24 11:25 Hospitalization Ordered Notes: Hospitalization Status: Inpatient Admission snw Provider: Damien Ray snw [facility] snw Condition: Stable snw Problem: new snw Symptoms: have worsened snw Bed/Room Type: Standard snw Room Assignment: 229(04/18/24 13:11) eb Diagnosis - Periapical abscess without sinus snw - Dehydration snw Forms: - Medication Reconciliation Form snw - SBAR form snw - Leadership Thank You Letter snw Addendum: 04/24/2024 02:31 I was immediately available for consultation during this patient's visit. I did not e c2 personally see the patient or discuss the patient with the DEMAR. . Signatures: Dispatcher [employer] Jennifer Freire, HOSE FINISHER-C HOSE FINISHER-Csnw Jina Peralta RN RN Maddy Fung RN RN Adwoa Brooke Lynsay, RN RN ll1 Damien Ray MD MD ec2 Diana Talbert RN mb9 Corrections: (The following items were deleted from the chart) 04/18 09:24 09:24 BLOOD CULTURE*+BA.LAB.BRZ ordered. EDMS EDMS 09:24 09:24 CBC+H.LAB.BRZ ordered. EDMS EDMS 09:24 09:24 COMPREHENSIVE METABOLIC PANEL+C.LAB.BRZ ordered. EDMS EDMS 09:24 09:24 LACTATE+C.LAB.BRZ ordered. EDMS EDMS 09:24 09:24 TEST, SERUM+SC.LAB.BRZ ordered. EDMS EDMS 09:24 09:24 Maxillofacial W/Cont+CT.RAD.BRZ ordered. EDMS EDMS 13:11 11:25 snw eb
[2024-04-18] MEDS ORDERED: METRONIDAZOLE 500mg IVPB 500 MG/100 ML BAG IV ONE (12:16)
--- NOTE | 2024-04-18 13:02 | P.HP ---
Certification for Inpatient Patient admitted to: Inpatient With expected LOS: <2 Midnights Patient will require the following post-hospital care: None Practitioner: I am a practitioner with admitting privileges, knowledge of patient current condition, hospital course, and medical plan of care. Services: Services provided to patient in accordance with Admission requirements found in Title 42 Section 412.3 of the Code of Federal Regulations Patient History Date of Service: 04/18/24 Reason for admission: periapical abscess History of Present Illness: 29 year old with past medical history of seizures presents with left jaw swelling. She reports symptoms started 2 days ago is progressively getting worse. She reported symptoms started as a toothache, started in the left upper jaw, she reports inability eat, severe pain 10 out of 10, nausea, vomiting. She reports being seen in the emergency department and did not pick pulling machine tender her medications. She reported headache, fever, unable to open her mouth. Plan to admit for - Periapical abscess with maxillary sinus sinus opacification, Dehydration with ENT to consult Dr. Biswas ER evaluation, 6 BP 123 / 97; Pulse 103; Resp 18; Temp 99.1; Pulse Ox 97% on R/A; Weight 67.13 kg; Height 5 ft. 4 in. ; Pain 10/10; CT maxillary facial with contrast Moderate soft tissue swelling is seen left aspect of the space. Subperiosteal odontogenic abscess is seen along the posterior left buccal cortex adjacent to the posterior left maxilla. This appears to be caused by significantly eroded left first maxillary molar with large periapical abscess associated. WBCs 15.40, lactic acid is normal, Allergies Penicillins Allergy (Unverified 11/05/14 04:16) Unknown Home Medications: NK [No Home Meds] 04/18/24 - Past Medical/Surgical History Has patient received pneumonia vaccine in the past: No -: Seizure disorder - Social History Smoking Status: Heavy Tobacco smoker (>10 cigarettes/day) Counseled patient to stop smoking for: more than 10 minutes Smoking therapy provided: Yes Alcohol use: No Caffeine use: Yes Place of Residence: Home Review of Systems 10-point ROS is otherwise unremarkable General: As per HPI Physical Examination - Physical Exam General: Alert, Oriented x3, Mild distress HEENT: Atraumatic, Normocephalic, PERRLA, Other (severe left ear and left cheek tenderness, edema, unable to open her mouth wide.) Neck: Supple, Without JVD or thyroid abnormality Respiratory: Clear to auscultation bilaterally, Normal air movement, Other (100% on room air, no drooling,) Cardiovascular: Regular rate/rhythm, Other (Sinus tachycardia) Capillary refill: <2 Seconds Gastrointestinal: Normal bowel sounds, Soft and benign Musculoskeletal: No swelling Neurological: Normal gait, Normal strength at 5/5 x4 extr, Cranial nerves 3-12 intact - Studies Laboratory Data (last 24 hrs) 04/18/24 04/18/24 09:50 09:50 WBC 15.40 H Hgb 15.1 H Hct 45.3 H Plt Count 294 Sodium 137 Potassium 3.5 BUN 12 Creatinine 0.88 Glucose 115 H Total Bilirubin 0.6 AST 17 ALT 36 Alkaline Phosphatase 121 H Assessment and Plan - Problems (Diagnosis) (1) SIRS (systemic inflammatory response syndrome) Current Visit: Yes Status: Acute (2) Periapical abscess Current Visit: Yes Status: Acute (3) Facial swelling Current Visit: Yes Status: Acute (4) Intractable pain Current Visit: Yes Status: Acute (5) Left maxillary sinus opacification Current Visit: Yes Status: Acute (6) Tobacco use Current Visit: Yes Status: Acute - [facility] IV clindamycin, Flagyl, as needed analgesics, antiemetics, IV fluids Trend lactic, trend WBCs Monitor airway Head elevated 30 degrees Clear liquid diet until able to tolerate p.o. IV Keppra for seizure disorder Blood cultures CBC, CRP, BMP in the a.m. Educated on tobacco cessation, nicotine patch Discharge Plan: Home - Advance Directives Does patient have a Living Will: No Does patient have a Durable POA for Healthcare: No - Code Status/Comfort Care Code Status: Full Code Critical Care: No Time Spent Managing Pts Care (In Minutes): 55
[2024-04-18 14:09] VITALS: O2SAT 100
[2024-04-18 14:49] VITALS: BMI 25.4
[2024-04-18] MEDS: NA CHLORIDE 0.9% 1,000 ML IV SCH (15:00)
[2024-04-18] MEDS: NICOTINE 14 MG/PAT TD SCH (17:21)
[2024-04-18] MEDS: levETIRAcetam 500 MG in NA CHLORIDE 0.9% 100 ML IV SCH (17:22)
[2024-04-18] MEDS: CLINDAMYCIN 600MG/D5W 50 ML IV SCH (17:23)
[2024-04-18] MEDS: METRONIDAZOLE 500mg IVPB 500 MG/100 ML BAG IV SCH (17:23)
[2024-04-18] MEDS: MORPHINE 4 MG/ML SYR IV PRN (19:10)
[2024-04-19] MEDS: levETIRAcetam 500 MG in NA CHLORIDE 0.9% 100 ML IV ONE (06:21)
[2024-04-19 06:26] LABS: Absolute Eosinophils 0.3 K/uL (0-0.5); Absolute Lymphocytes (CBC) 2.5 K/uL (0.7-4.9); Absolute Monocytes 0.7 K/uL (0.1-1.3); Basophils % 0.4 % (0-1.3); Hematocrit 37.1 % (36.0-45.0); Hemoglobin 12.6 g/dL (12.0-15.0); Lymphocytes % 29.2 % (15.3-44.8); MCH 33.2 pg (27.0-35.0); MCHC 33.9 g/dL (32.0-36.0); MCV 98.1 fL (80-100); MPV 8.7 fL (7.6-11.3); Monocytes % 7.8 % (3.3-12.3); Neutrophils % 58.6 % (41.7-73.7); Platelets 216 thou/uL (152-406); RBC Red Blood Cell Count 3.78 M/uL (3.86-4.86); Red Cell Distribution Width 12.8 % (12.1-15.2)
--- NOTE | 2024-04-19 06:38 | P.PN ---
Date of Service: 04/19/24 subjective redness, swelling, pain to left jaw still present, improved ENT saw patient today repeat facial CT-fluid collection decreasing in size, no evidence of orbital cellulitis Review of Systems 10-point ROS is otherwise unremarkable General: As per HPI Physical Examination - Physical Exam vital signs reviewed General: Alert, Oriented x3, no acute distress HEENT: Atraumatic, Normocephalic, PERRLA, Other (severe left ear and left cheek tenderness, edema) Neck: Supple, Without JVD or thyroid abnormality Respiratory: Clear to auscultation bilaterally, Normal air movement, Other (100% on room air, no drooling,) Cardiovascular: Regular rate/rhythm, Other (Sinus tachycardia) Capillary refill: <2 Seconds Gastrointestinal: Normal bowel sounds, Soft and benign Musculoskeletal: No swelling Neurological: Normal gait, Normal strength at 5/5 x4 extr, Cranial nerves 3-12 intact Assessment and Plan - Problems (Diagnosis) (1) SIRS (systemic inflammatory response syndrome) Current Visit: Yes Status: Acute (2) Periapical abscess Current Visit: Yes Status: Acute (3) Facial swelling Current Visit: Yes Status: Acute (4) Intractable pain Current Visit: Yes Status: Acute (5) Left maxillary sinus opacification Current Visit: Yes Status: Acute (6) Tobacco use Current Visit: Yes Status: Acute - Plan Admit to [facility] to consult IV clindamycin, Flagyl, as needed analgesics, antiemetics, IV fluids Trend lactic, trend WBCs Monitor airway Head elevated 30 degrees Clear liquid diet until able to tolerate p.o. IV Keppra for seizure disorder Blood cultures CBC, CRP, BMP in the a.m. Educated on tobacco cessation, nicotine patch ENT saw patient today, repeat CT shows no orbital cellulitis, Discharge Plan: Home - Advance Directives Does patient have a Living Will: No Does patient have a Durable POA for Healthcare: No - Code Status/Comfort Care Code Status: Full Code Critical Care: No Time Spent Managing Pts Care (In Minutes): 35
[2024-04-19 06:43] LABS: Albumin 2.7 g/dL (3.4-5.0); Anion Gap 8.4 mEq/L (5.0-15.0); C-Reactive Protein 89.3 mg/L (<3.00); Phosphorus 2.7 mg/dL (2.5-4.9); Potassium 3.4 mEq/L (3.5-5.1)
[2024-04-19] MEDS: ONDANSETRON 4 MG/2 ML VIAL IV PRN (09:02)
--- NOTE | 2024-04-19 10:41 | RAD REPORT ---
EXAMINATION: CT MAXILLOFACIAL WITHOUT CONTRAST CLINICAL INDICATION: Female, 29 years old. worsening swelling Left side of face TECHNIQUE: Axial images were obtained through the facial bones and orbits with intravenous contrast. Sagittal and coronal reconstructions were created from the data. One or more of the following dose reduction techniques were used: Automated exposure control, adjustment of the mA and/or kV according to patient size, and/or iterative reconstruction. Unless otherwise specified, incidental findings do not require dedicated imaging follow-up. [id number]. COMPARISON: CT from yesterday FINDINGS: SOFT TISSUE: Small fluid collection adjacent to the left maxillary molar which has a periapical lucen cy and dental zane again identified but slightly decreased in size measuring approximately 8 x 2 mm, previously 12 x 4 mm. Left facial soft tissue swelling involving the left cheek and preseptal sof t tissues. Rectus size lymph nodes. BONES: No evidence of fracture, dislocation, or aggressive osseous lesions. ORBITS: The globes are intact. No intraorbital hemorrhage or mass. SINUSES: Circumferential thickening left maxillary sinus. BRAIN: No acute abnormalities in the visualized intracranial structures. IMPRESSION: Slight decrease in size of the fluid collection adjacent to the left maxillary molar compared with ye . Similar left-sided facial skin thickening and subcutaneous edema likely representing a cellulitis. Preseptal soft tissue thickening. No evidence of an orbital cellulitis. Circumferential t hickening left maxillary sinus is unchanged.
[2024-04-19] MEDS: D5 0.9 NS 1,000 ML IV SCH (12:15)
--- NOTE | 2024-04-19 16:08 | CON ---
Date of Consultation: 04/19/2024 Chief Complaint: Left facial swelling and severe left molar gingival pain. History Of Present Illness: The patient is a 29-year-old female who presented to the emergency room with acute left jaw swelling. At the time of admission, her pain was roughly 10/10 with nausea and vomiting. She was placed on Cleocin and Flagyl IV, and I was consulted for further evaluation. Upon arrival to bedside, the patient is in no acute distress, but she still reports ljlislzq-jr-zuvoba left facial pain and swelling extending up to the periorbital area, and she is unable to completely open her mouth more than [address] scans were performed of the maxillofacial bones, which shows an improvement of a periapical molar abscess involving the left maxillary molar. It appears to be improving with antibiotics, but the patient still reports severe pain and swelling. She had the same problem roughly 5 years ago. The surgery was not needed at that time. They did pull the tooth and she feels a fullness in the area where the tooth was pulled prior. She is able to tolerate liquids and solid food, and she is eating when I arrived to bedside. Nausea and vomiting have resolved. No other ENT complaints today. Past Medical History: Seizure disorder. Surgeries: None. Allergies: TO PENICILLIN, CAUSES RASH/HIVES. Home Medications: None. Social History: Smoking status: The patient smokes at least 1/2 pack per day. No alcohol use. Moderate caffeine use. Patient lives at home. Review of Systems: General: Positive for fatigue and malaise. Head/face: Positive for left facial pain/swelling, moderate to severe. Eyes: Negative for drainage. Negative for blurry or double vision or vision loss. Ears: Negative for otorrhea, hearing loss, or otalgia. Nose: Positive for bilateral nasal congestion, left worse than right. Negative for rhinorrhea. Oral Cavity: Positive for left upper maxillary molar area swelling and pain, severe. Negative for bleeding. Neck: Negative for lymph node enlargement or thyromegaly. Respiratory: Negative for shortness of breath or chest pain. Physical Examination: General: The patient is awake, alert, oriented x3, in no acute distress. Head: Atraumatic, normocephalic. Eyes: PERRLA/EOMI. Face: Hktegqtr-xl-amhjbo left malar pain with mild swelling extending to the periorbital area of the left eye. No exudate seen and the patient's eye movements are normal. Oral cavity: Upon jaw destruction, the patient can open her mouth at least 2 cm and the area at the left maxillary molar crevice, there is a tenderness to palpation in this area. I do not palpate a discernible abscess. Neck: Supple. Trachea midline. Imaging: CT scan of maxillofacial bones on 04/18/2024 compared with 04/19/2024 demonstrates an improving periapical fluid collection, which measured initially 12 x 4.3, which is now 8 x 1.7 mm. The patient has moderate opacification of the left maxillary sinus extending to the anterior ethmoid sinus, left. There is some preseptal swelling of the left eye, but no evidence of abscess or subperiosteal abscess. Laboratory Data: Initial white count 15.4, hemoglobin 15.1, hematocrit 45.3. Diagnoses: 1. Systemic inflammatory response secondary to left maxillary molar periapical abscess, improving despite the patient's report of pain and swelling. Overall improved since starting IV Flagyl and Cleocin. 2. Left maxillary sinusitis. 3. Tobacco abuse. Recommendations: 1. Continue clindamycin and Flagyl IV and trend lactic acids and WBC counts. Convert to oral antibiotics when able. 2. The patient can continue a regular diet today. 3. Spoke with Dr. Connell on 04/19/24 via phone and he stated that patient will followup with Dr. Hutton on 04/20/24 to address the infected tooth. 4. Consider chlorhexidine mouthwash upon discharge 15 mL p.o. b.i.d. swish and spit. 5. Followup outpatient with me for sinusitis in 2-4 weeks. SILVIANO/ROSIO Voice ID: [id number] Report ID: [id number] ANN
[2024-04-19] MEDS: levETIRAcetam 500 MG in NA CHLORIDE 0.9% 100 ML IV SCH (21:44)
--- NOTE | 2024-04-20 06:41 | P.DS ---
Admission Date: 04/18/24 Disposition: ROUTINE DISCHARGE Discharge Condition: GOOD Reason for Admission: periapical abscess Consultations: Dr. Cohen Brief History of Present Illness: 29 year old with past medical history of seizures presents with left jaw swelling. She reports symptoms started 2 days ago is progressively getting worse. She reported symptoms started as a toothache, started in the left upper jaw, she reports inability eat, severe pain 10 out of 10, nausea, vomiting. She reports being seen in the emergency department and did not citrus picker her medications. She reported headache, fever, unable to open her mouth. Plan to admit for - Periapical abscess with maxillary sinus sinus opacification, Dehydration with ENT consult to Dr. Biswas ER evaluation, 6 BP 123 / 97; Pulse 103; Resp 18; Temp 99.1; Pulse Ox 97% on R/A; Weight 67.13 kg; Height 5 ft. 4 in. ; Pain 10/10; CT maxillary facial with contrast Moderate soft tissue swelling is seen left aspect of the space. Subperiosteal odontogenic abscess is seen along the posterior left buccal cortex adjacent to the posterior left maxilla. This appears to be caused by significantly eroded left first maxillary molar with large periapical abscess associated. WBCs 15.40, lactic acid is normal, Hospital Course: Please plan to call and proceed to Dr. Barboza's office. Continue clindamycin prescribed pre-admission unless he tells you otherwise. Nothing by mouth until he has seen you. Hospital course: Ms. Lawrence is a 29-year-old female with a past medical history of seizure disorder. She arrived to the emergency department with increased left facial swelling status post diagnosis of a periapical abscess. She had a CAT scan in the emergency department that shows a 20 x 4 mm periapical abscess to the maxillary tooth. As she is allergic to penicillin, she was admitted for IV clindamycin. Attempts to transfer for it with him unsuccessful. It was recommended that Flagyl be added to her antibiotic regimen. Repeat CAT scan sh ows no further progression however her white count was concerning. Dr. Connell spoke with Dr. Cohen, this morning's white count is normal, Dr. Cohen asked for the patient to be sent to his office for dental procedure. Assessment: Maxillary periapical abscess PMH: Seizure disorder New prescriptions: Patient has prescription for oral clindamycin from the day before her admission. No driving on as needed analgesics or operating heavy equipment Continue home medicines as previously prescribed GOAL: Clear understanding of disease process Diet: As advised per Dr. Cohen for today Activity: Ad adama. Vital Signs/Physical Exam: Temp Pulse Resp BP Pulse Ox 98.9 F 80 14 96/61 95 04/20/24 04:00 04/20/24 04:00 04/20/24 04:00 04/20/24 04:00 04/20/24 04:00 Laboratory Data at Discharge: WBC Cancelled 04/20/24 06:00 Hgb Cancelled 04/20/24 06:00 Hct Cancelled 04/20/24 06:00 Plt Count Cancelled 04/20/24 06:00 Sodium 140 mEq/L (136-145) 04/19/24 05:58 Potassium 3.4 mEq/L (3.5-5.1) L 04/19/24 05:58 BUN 7 mg/dL (7-18) 04/19/24 05:58 Creatinine 0.55 mg/dL (0.55-1.02) 04/19/24 05:58 Glucose 85 mg/dL (74-106) 04/19/24 05:58 Phosphorus 2.7 mg/dL (2.5-4.9) 04/19/24 05:58 Total Bilirubin 0.6 mg/dL (0.2-1.0) 04/18/24 09:50 AST 17 U/L (15-37) 04/18/24 09:50 ALT 36 U/L (13-56) 04/18/24 09:50 Alkaline Phosphatase 121 U/L (45-117) H 04/18/24 09:50 Home Medications: NK [No Home Meds] 04/18/24 Physician Discharge Instructions: Please plan to call and proceed to Dr. Barboza's office. Continue clindamycin prescribed pre-admission unless he tells you otherwise. Nothing by mouth until he has seen you. Hospital course: Ms. Lawrence is a 29-year-old female with a past medical history of seizure disorder. She arrived to the emergency department with increased left facial swelling status post diagnosis of a periapical abscess. She had a CAT scan in the emergency department that shows a 20 x 4 mm periapical abscess to the maxillary tooth. As she is allergic to penicillin, she was admitted for IV clindamycin. Attempts to transfer for it with him unsuccessful. It was recommended that Flagyl be added to her antibiotic regimen. Repeat CAT scan shows no further progression however her white count was concerning. Dr. Connell spoke with Dr. Cohen, this morning's white count is normal, Dr. Cohen asked for the patient to be sent to his office for dental procedure. Assessment: Maxillary periapical abscess PMH: Seizure disorder New prescriptions: Patient has prescription for oral clindamycin from the day before her admission. No driving on as needed analgesics or operating heavy equipment Continue home medicines as previously prescribed GOAL: Clear understanding of disease process Diet: As advised per Dr. Cohen for today Activity: Ad adama. INSTRUCTIONS: Physician Discharge Instructions: Okay to DC IV and DC home Follow-up with Dr. Cohen in his office post discharge Follow-up with primary care provider in 1 to 2 weeks Please call the inpatient unit for any questions or concerns regarding hospital stay Return to the ER for worsening symptoms Activity: Ad adama Followup: Magdy Cohen DDS, MD [ACTIVE - CAN ADMIT] - NONE,NONE [Primary Care Provider] -
[2024-04-20 08:56] VITALS: TEMP 98.3
[2024-04-20 10:29] LABS: Absolute Basophils 0.1 K/uL (0-0.5); Absolute Eosinophils 0.5 K/uL (0-0.5); Absolute Monocytes 0.5 K/uL (0.1-1.3); Absolute Neutrophil 3.4 K/uL (1.8-8.0); Basophils % 0.9 % (0-1.3); Hematocrit 35.3 % (36.0-45.0); Lymphocytes % 30.7 % (15.3-44.8); MCH 33.1 pg (27.0-35.0); MCHC 34.1 g/dL (32.0-36.0); MPV 8.8 fL (7.6-11.3); Monocytes % 7.4 % (3.3-12.3); Nucleated Red Blood Cells % 0.1 % (0-0); Platelets 237 thou/uL (152-406); RBC Red Blood Cell Count 3.64 M/uL (3.86-4.86); Red Cell Distribution Width 12.7 % (12.1-15.2)
[2024-04-20 10:43] LABS: Albumin 2.5 g/dL (3.4-5.0); Anion Gap 5.8 mEq/L (5.0-15.0); Phosphorus 2.8 mg/dL (2.5-4.9); Potassium 3.8 mEq/L (3.5-5.1)
[2024-04-20 12:54] VITALS: BP 103/58
--- NOTE | 2024-04-20 13:31 | P.PN ---
Date of Service: 04/20/24 subjective swelling, pain to left jaw still present, improved ENT saw patient 04/[address]-fluid collection decreasing in size, no evidence of orbital cellulitis Review of Systems 10-point ROS is otherwise unremarkable General: As per HPI Physical Examination - Physical Exam vital signs reviewed General: Alert, Oriented x3, no acute distress HEENT: Atraumatic, Normocephalic, PERRLA, Other (severe left ear and left cheek tenderness, edema) Neck: Supple, Without JVD or thyroid abnormality Respiratory: Clear to auscultation bilaterally, Normal air movement, Other (100% on room air, no drooling,) Cardiovascular: Regular rate/rhythm, Other (Sinus) Capillary refill: <2 Seconds Gastrointestinal: Normal bowel sounds, Soft and benign Musculoskeletal: No swelling Neurological: Normal gait, Normal strength at 5/5 x4 extr, EOMI Assessment and Plan - Problems (Diagnosis) (1) SIRS (systemic inflammatory response syndrome) Current Visit: Yes Status: Acute (2) Periapical abscess Current Visit: Yes Status: Acute (3) Facial swelling Current Visit: Yes Status: Acute (4) Intractable pain Current Visit: Yes Status: Acute (5) Left maxillary sinus opacification Current Visit: Yes Status: Acute (6) Tobacco use Current Visit: Yes Status: Acute - Plan Admit to [facility] [place] [facility] to consult - Dr. Biswas saw pt 04/19/24 IV clindamycin, Flagyl, as needed analgesics, antiemetics, IV fluids Trend lactic, trend WBCs - down today (04/20/24) Head elevated 30 degrees Clear liquid diet until able to tolerate p.o. IV Keppra for seizure disorder Blood cultures CBC, CRP, BMP in the a.m. Educated on tobacco cessation, nicotine patch Discussed with Dr. Cohen. Will continue IV abx tonight, discharge tomorrow afternoon, and she will stay NPO afer DC and see him in his office Saturday am Discharge Plan: Home - Advance Directives Does patient have a Living Will: No Does patient have a Durable POA for Healthcare: No - Code Status/Comfort Care Code Status: Full Code Critical Care: No Time Spent Managing Pts Care (In Minutes): 35
== END 2024-04-20 12:50 | disposition left against medical advice (07) | DRG 158 ==
LOC: ER 09:06 → ERHOLD 13:03 → 2ND 13:35
PROVIDERS: ADMIT Internal Medicine Sleep Medicine; ATTEND Hospitalist
DX: K04.6 Periapical abscess with sinus (principal); R65.10 Systemic inflammatory response syndrome (SIRS) of non-infectious origin without acute organ dysfunction; E86.0 Dehydration; G40.909 Epilepsy, unspecified, not intractable, without status epilepticus; F17.210 Nicotine dependence, cigarettes, uncomplicated; Z88.0 Allergy status to penicillin
CPT/HCPCS: 36415; 70487; 76377; 80053; 80069; 80177; 83605; 84703; 85025; 86140; 87040; 96365; 96367; 96375; 99285; J1953; J2405; J2550; J7030; J7040; J7042; Q9967